=== PATIENT | female | born 1980 | race Caucasian/White ===

== ENCOUNTER 2017-07-26 02:49 | Emergency (ER) | payer SELFPAY ==
[2017-07-26 02:50] VITALS: BP 139/114; PULSE 118; RESP 20; TEMP 98.6; O2SAT 98
== END 2017-07-26 03:15 | disposition left against medical advice (07) ==
LOC: NED 02:49
DX: Z04.3 Encounter for examination and observation following other accident (principal); Z53.21 Procedure and treatment not carried out due to patient leaving prior to being seen by health care provider
CPT/HCPCS: 99281